=== PATIENT | male | born 1985 | race Caucasian/White ===

== ENCOUNTER 2017-09-11 22:31 | Emergency (ER) | payer OTHER ==
[~2017-09-11] VITALS: Ht 177.8 cm; Wt 124.7 kg
[2017-09-11 22:45] VITALS: BP 162/88
[2017-09-11] MEDS ORDERED: SULF1TAB24 PO (23:11)
[2017-09-11] MEDS ORDERED: ACET325T9 PO (23:21)
[2017-09-11] MEDS ORDERED: NAPR275T59 PO (23:21)
--- NOTE | 2017-09-11 23:26 | PHYS DOC ---
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 Patient isn't injury to the index finger in the webspace of the thumb describes a dull ache moderate in nature with no specific numbness or tingling. Patient says the pain is worse with range of motion there is some mild "" tightness within the joint itself but no locking or popping. Patient has not injured this hand before and he is right-hand dominant. Review of Systems Review of Systems Constitutional: Denies fever or chills [] Cardiovascular: No additional information not addressed in HPI [] GI: Denies abdominal pain, nausea, vomiting, bloody stools or diarrhea [] Musculoskeletal: Denies back pain or only positive for right index finger and thumb pain[] Integument: Denies rash or skin lesions [] Neurologic: Denies headache, focal weakness or sensory changes [] All other systems were reviewed and found to be within normal limits, except as documented in this note. Allergies Allergies Allergies Coded Allergies Type Severity Reaction Last Updated Verified Penicillins Allergy Unknown 09/11/17 Yes amoxicillin Allergy Unknown 09/11/17 Yes Physical Exam Physical Exam Of the vital signs important on the chart patient noted to be hypertensive otherwise normal Constitutional: Well developed, well nourished, no acute distress, non-toxic appearance. [] HENT: Normocephalic, atraumatic, Skin: Warm, dry, no erythema, no rash. [] Extremities: tenderness along the index finger specifically the proximal phalanx on the volar surface of the hand. Patient has normal range of motion with no locking or popping within the joints. He's had some mild soft tissue swelling along that zone 3 of the hand there is normal range of motion within the thumb with no pain over axial loading of the PIP or DIP of the thumb or over the scaphoid bone. Patient is no obvious deformity there is no injury over the knuckles patient denies fight bite, ROM intact, brisk capillary refill +2, brisk peripheral pulses at the ulnar and radial arteries with normal Segundo's test. Patient has normal sensation to light touch over the fingers Neurologic: Alert and oriented X 3, normal motor function, normal sensory function, no focal deficits noted. [] Psychologic: Affect normal, judgement normal, mood normal. [] EKG EKG [] Radiology/Procedures Radiology/Procedures []Patient's 3 view film of the right hand x-rays no acute fracture within the fingers. There is no foreign body no soft tissue contusion swelling or air. Course & Med Decision Making Course & Med Decision Making Pertinent Labs and Imaging studies reviewed. (See chart for details) []Patient a fall from standing with a contusion to the volar surface of the right hand oversewn 2 and 3 for the hand specifically over the PIP joint of the index finger and thumb patient has great range of motion with normal sensation normal neuro exam. X-rays on remarkable for fracture or foreign body. My discharge plan Follow up: In addition patient is asked to followup with their primary doctor, within a week for followup examination and to address patient's ongoing medical conditions. Patient is advised that in the Emergency Department primary complaints are addressed and only in light of known signs and symptoms. Patient should return immediately to the emergency department if new signs and symptoms develop or patient's condition worsens in any way. At time of discharge patient was in stable condition and had verbalized understanding of the discharge instructions. Although there is no acute fracture noted on x-ray today this does not mean subtle fractures are not missed on initial presentation. If your symptoms are not improved within 1 week or if symptoms worsen despite oral treatment with pain medications I would advise follow-up with your primary care doctor to have a repeat set of x-rays completed to ensure no subtle fractures were missed. Please understand that sometimes x-rays are missed red and if there is a misreading of your x-rays she will be contacted by the emergency room physician to talk about appropriate treatment. Dragon Disclaimer Dragon Disclaimer This electronic medical record was generated, in whole or in part, using a voice recognition dictation system. Departure Departure: Impression: Primary Impression: Hand contusion Additional Impression: Sprain, thumb Disposition: HOME, SELF-CARE Condition: IMPROVED Referrals: PCP,NO (PCP) Patient Instructions: Contusion, Finger Sprain, Hand Injuries Additional Instructions: discharge: I've spoken with the patient and/or caregivers. I've explained the patient's condition, diagnosis and treatment plan based on information available to me at this time. I've answered the patient's and/or caregivers questions and addressed any concerns. The patient and/or caregivers have a good understanding the patient's diagnosis, condition and treatment plan as can be expected at this point. Vital signs have been stabilized. The patient's condition is stable for discharge from the emergency department. The patient will pursue further outpatient evaluation with her primary care provider or other designated consulting physician as outlined in the discharge instructions. Patient and/or caregivers are agreeable to this plan of care and follow-up instructions have been explained in detail. The patient and/or caregivers have received these instructions in written format and expressed understanding of these discharge instructions. The patient and her caregivers are aware that if any significant change in condition or worsening of symptoms should prompt him to immediately return to this of the closest emergency department. If an emergent department is not readily available I would encourage him to call 911. Scripts Acetaminophen (TYLENOL) 325 Mg Tablet 1-2 TAB PO QID, #30 TAB 2 Refills Prov: WARREN SAMSON MD 09/11/17 Naproxen Sodium (NAPROXEN SODIUM) 275 Mg Tablet 275 MG PO BID for 7 Days, #14 TAB Prov: WARREN SAMSON MD 09/11/17 Problem Qualifiers WARREN SAMSON MD Sep 11, 2017 23:26
--- NOTE | 2017-09-12 07:42 | RAD ---
Right hand, 3 views, 09/11/2017: History: Fall, hand injury No fracture or dislocation is identified. The soft tissues are unremarkable. IMPRESSION: No acute right hand abnormality is detected.
== END 2017-09-11 23:32 | disposition home or self-care (01) ==
LOC: ER 22:31
DX: S63.601A Unspecified sprain of right thumb, initial encounter (principal); S60.221A Contusion of right hand, initial encounter; Z88.0 Allergy status to penicillin; Z88.1 Allergy status to other antibiotic agents; W17.89XA Other fall from one level to another, initial encounter; Y93.89 Activity, other specified; Y99.0 Civilian activity done for income or pay; Y92.89 Other specified places as the place of occurrence of the external cause
CPT/HCPCS: 73130; 99284